=== PATIENT | male | born 1970 | race Caucasian/White ===

== ENCOUNTER → 2020-07-14 | Outpatient (CLI) | payer BC ==
--- NOTE | 2020-07-14 12:44 | XR ---
EXAMINATION TYPE: XR thoracic spine complete DATE OF EXAM: 07/14/2020 COMPARISON: None HISTORY: Pain, numbness TECHNIQUE: Three-view thoracic spine FINDINGS: There are 12 thoracic type vertebral bodies. The pedicles are intact. Disc heights are pres erved. Vertebral body heights are preserved. Alignment appears normal. IMPRESSION: 1. Normal thoracic spine
--- NOTE | 2020-07-14 13:41 | XR ---
EXAMINATION TYPE: XR cervical spine limited DATE OF EXAM: 07/14/2020 COMPARISON: None HISTORY: Left shoulder pain, nerve pain, numbness TECHNIQUE: Three-view cervical spine FINDINGS: There is mild narrowing of the C5-C6 disc space. Prevertebral space is normal. Remaining di sc heights are preserved. Vertebral body heights are preserved. Posterior spinal lamellar line is int act. IMPRESSION: 1. Mild degenerative disc changes C5-6.
== END | disposition home or self-care (01) ==
LOC: RADXRMAIN 11:22
PROVIDERS: ATTEND Family Medicine
DX: M47.22 Other spondylosis with radiculopathy, cervical region (principal); M54.6 Pain in thoracic spine
CPT/HCPCS: 72040; 72072

== ENCOUNTER 2020-08-09 10:42 | Day surgery (SDC) | payer BC ==
[2020-08-08 10:36] VITALS: BMI 26.4
[~2020-08-09 10:42] MED LIST: LACTATED RINGERS 1,000 ML IV SCH; LIDOCAINE 1% (10MG/ML) FOR IV START INTRADERMA PRN
[2020-08-09 11:00] VITALS: RESP 16; TEMP 98.2
[2020-08-09 11:08] LABS: Glucose,Whole Blood 87 mg/dL (75-99)
[2020-08-09] MEDS ORDERED: PROPOFOL 10 MG/ML 20 ML VIAL IV ONE (12:30)
--- NOTE | 2020-08-09 13:02 | P.PCN ---
Date of Procedure: 08/09/20 Description of Procedure: BRIEF HISTORY: Patient is a 50-year-old male presenting for outpatient colonoscopy for screening for malignant neoplasm of the colon. No prior colonoscopy. No family history of colon cancer. No abdominal pain reported. PROCEDURE PERFORMED: Colonoscopy. PREOPERATIVE DIAGNOSIS: Screening for malignant neoplasm of the colon, no prior colonoscopy reported. ESTIMATED BLOOD LOSS: Minimal. IV sedation per Anesthesia. PROCEDURE: After informed consent was obtained, the patient, was brought into the endoscopy unit. IV sedation was administered by Anesthesia under continuous monitoring. Digital rectal examination was normal. Initially the Olympus CF-190 flexible video colonoscope was then inserted in the rectum, gradually advanced into the cecum without any difficulty. Careful examination was performed as the scope was gradually being withdrawn. Ileocecal valve and the appendiceal orifice were visualized and appeared normal. Prep was excellent. Mucosa of the cecum, ascending colon, transverse colon, descending colon, sigmoid colon, and rectum appeared normal. Retroflexion was performed in the rectum and no lesions were seen, low-grade internal hemorrhoids seen. The patient tolerated the procedure well. IMPRESSION: Normal-appearing colon from rectum to cecum. Internal hemorrhoids. RECOMMENDATIONS: Findings of this examination were discussed with the patient and his family. Okay to resume diet. Okay to resume medications. Recommend repeat colonoscopy in 10 years for screening for malignant neoplasm of the colon or sooner if signs or symptoms which warrant further evaluation develop.
[2020-08-09 13:27] VITALS: BP 129/89; PULSE 68
== END 2020-08-09 13:33 | disposition home or self-care (01) ==
LOC: ORWHC2ENDO 10:42
PROVIDERS: ATTEND Internal Medicine
DX: Z12.11 Encounter for screening for malignant neoplasm of colon (principal); K64.8 Other hemorrhoids; Z87.891 Personal history of nicotine dependence; Z79.1 Long term (current) use of non-steroidal anti-inflammatories (NSAID); Z98.890 Other specified postprocedural states; I10 Essential (primary) hypertension
CPT/HCPCS: J2704; G0121

== ENCOUNTER → 2020-08-10 | Outpatient (CLI) | payer BC ==
--- NOTE | 2020-08-10 09:33 | MR ---
MRI CERVICAL SPINE: CLINICAL HISTORY: Cervical region radiculopathy. Numbness and weakness with pain in neck and arm. TECHNIQUE: Multiplanar, multisequence imaging of the cervical spine is performed without and with IV contrast, 8.5 cc of gadolinium was given intravenously. COMPARISON: Cervical spine x-ray July 14, 2020. FINDINGS: Sagittal images of the cervical spine show the craniocervical junction to appear within nor mal limits. The cervical and upper thoracic spinal cord is normal in caliber and signal. Generalize d AP diameter canal narrowing in the upper to mid cervical spine. Vertebral alignment is straightened . Slight grade 1 retrolisthesis C5 on C6 and C6 on C7. Mild disc space narrowing C5-C6 level otherwi se vertebral body and intravertebral disk heights are normal. The bone marrow signal intensity is wi thin normal limits. No suspicious postcontrast enhancement. Axial images show C2-C3 level to appear within normal limits. Axial images at C3-C4 level shows broad-based lobulated disc protrusion effacing the anterolateral th ecal sac bilaterally and uncovertebral facet degenerative changes causing mild right and moderate lef t-sided neural foraminal narrowing. Axial images at C4-C5 level show focal left paracentral disc protrusion effacing anterior lateral the rene sac, largest disc herniation seen at this level axial image 33 and sagittal image 7, patent bilat eral neural foramina. Axial images at C5-C6 level show subtle spondylolisthesis and lobulated broad-based posterior disc pr otrusion effacing anterior thecal sac and causing moderate to advanced left greater than right bilate ral neural foraminal narrowing. Axial images at C6-C7 level show left paracentral/foraminal disc protrusion effacing anterolateral th ecal sac and causing asymmetric moderate to severe left-sided neural foraminal narrowing, there is mi [id number] right-sided neural foraminal narrowing due to small right foraminal disc protrusion. Axial images at C7-T1 level appear within normal limits. IMPRESSION: Straightening of cervical spine with multilevel degenerative changes C3-C4 through C6-C7 level as detailed above.
== END ==
LOC: RADMRIMAIN 07:03
PROVIDERS: ATTEND Family Medicine
DX: M47.22 Other spondylosis with radiculopathy, cervical region (principal); M50.123 Cervical disc disorder at C6-C7 level with radiculopathy; M43.12 Spondylolisthesis, cervical region
CPT/HCPCS: 72156; A9585